=== PATIENT | female | born 1990 | race Two or more races ===

== ENCOUNTER 2023-05-09 21:17 | Inpatient (IN) | payer MEDICAID ==
[~2023-05-09] VITALS: Ht 154.9 cm; Wt 78.9 kg
[~2023-05-09 21:17] MED LIST: PREN-96 PO
[2023-05-09] MEDS ORDERED: PHISODERM TOP SOLN 240ML BTL TOP PRN (22:00)
[2023-05-09] MEDS ORDERED: PENICILLIN G POT 5MIL/D5 50ML 50 ML IV ONE (22:00)
[2023-05-09] MEDS ORDERED: DERMOPLAST 60ML BOTTLE TOP PRN (22:00)
[2023-05-09] MEDS ORDERED: PROMETHAZINE HCL 25 MG/ML 1ML IM PRN (22:00)
[2023-05-09] MEDS ORDERED: BUTORPHANOL TARTRATE 2 MG/1 ML VIAL IV PRN ×2 (22:00)
[2023-05-09] MEDS ORDERED: LIDOCAINE 2%HCL (LOCAL ANESTH.) INJ 20ML MDV IJ PRN (22:00)
[2023-05-09] MEDS ORDERED: WITCH HAZEL-GLYCERIN PAD TOP PRN (22:00)
[2023-05-09 22:28] LABS: Urine Bacteria NONE SEEN /hpf (None Seen); Urine Blood 3+ /uL (Negative); Urine Mucus FEW (None Seen); Urine Specific Gravity 1.007 (1.001-1.035); Urine WBC 13 /hpf (0 - 5)
[2023-05-09 23:17] LABS: Alcohol, Urine < 3.0 mg/dL (0-10); Amphetamine Screen, Urine NEGATIVE (NEGATIVE); Barbiturate Scree,Urine NEGATIVE (NEGATIVE); Benzodiazephine Screen, Urine NEGATIVE (NEGATIVE); Cannabinoid Screen, Urine NEGATIVE (NEGATIVE); Cocaine Screen, Urine NEGATIVE (NEGATIVE); Opiate Scree,Urine NEGATIVE (NEGATIVE); Phencyclidine Screen, Urine NEGATIVE (NEGATIVE)
[2023-05-09 23:28] LABS: Protein, Urine 24.9 mg/dL (0.0-11.9)
[2023-05-09] MEDS: LACTATED RINGER'S 1,000 ML IV SCH (23:49)
[2023-05-09 23:55] LABS: Basophils # (auto) 0 10 ^3/uL (0-0.2); Basophils % (auto) 0.3 % (0.0-2.0); Eosinophils # (auto) 0.1 10 ^3/uL (0-0.8); Eosinophils % (auto) 0.6 % (0.0-7.0); Hematocrit 39.9 % (36.0-46.0); Hemoglobin 13.3 g/dL (12.2-16.2); Lymphocytes # (auto) 1.3 10 ^3/uL (0.4-5.4); Lymphocytes % (auto) 13.6 % (10.0-50.0); Mean Corpuscular Hemoglobin 29.4 pg (28.0-32.0); Mean Corpuscular Hgb Conc. 33.4 g/dL (32.0-36.0); Monocytes # (auto) 0.5 10 ^3/uL (0-1.3); Monocytes % (auto) 5.4 % (0.0-12.0); Neutrophils # (auto) 7.4 10 ^3/uL (1.6-8.6); Neutrophils % (auto) 80.1 % (37.0-80.0); Nucleated Red Blood Cells % 0.1 %; Red Blood Cells 4.54 10^6/uL (4.0-5.20); Red Cell Distribution Width 14.1 % (11.8-14.3); White Blood Cell 9.3 10^3/uL (4.4-10.8)
[2023-05-10] VITALS (12 sets, daily range): BP systolic 113–139; BP diastolic 68–82; PULSE 56–78; RESP 15–18; TEMP 97.8–98.6; O2SAT 96–100
[2023-05-10 00:01] LABS: Albumin 2.7 g/dL (3.4-5.0); Calcium 8.7 mg/dL (8.5-10.1); Potassium 3.6 mmol/L (3.5-5.1)
[2023-05-10 00:03] LABS: INR 0.85 (0.9-1.15); Partial Thromboplastin Time 26.5 SEC (24.5-34.5)
[2023-05-10 00:05] LABS: BUN/Creatinine Ratio 10.9 (10.0-20.0); Bilirubin, Total 0.3 mg/dL (0.2-1.0); Total Protein 6.9 g/dL (6.4-8.2); Uric Acid 6.1 mg/dL (2.6-6.0)
[2023-05-10] MEDS: miSOPROStol 50 MCG per PRE-CUT 1/2 TAB PO PRN ×2 (00:34→04:42)
[2023-05-10] MEDS ORDERED: PENICILLIN G POTASSIUM 2,500,000 UNITS in D5W 5% 50 ML IV SCH ×2 (02:00→10:00)
[2023-05-10] MEDS ORDERED: PENICILLIN G POT 5MILLION UNIT VIAL ONE (03:19)
[2023-05-10] MEDS ORDERED: STERILE WATER 10 ML ONE (03:21)
[2023-05-10] MEDS: LACTATED RINGER'S 1,000 ML IV SCH ×4 (03:45→19:20)
[2023-05-10] MEDS ORDERED: LACT. RINGERS/OXYTOCIN 20UNITS 500 ML IV ONE ×2 (06:30→07:00)
[2023-05-10] MEDS ORDERED: TERBUTALINE SULFATE 1 MG/ML 1ML VIAL SC PRN (08:45)
[2023-05-10] MEDS ORDERED: LACT. RINGERS/OXYTOCIN 20UNITS 1,000 ML IV SCH (08:45)
[2023-05-10] MEDS ORDERED: ceFAZolin 2 GM/D5W100ml 100 ML IV ONE (12:00)
[2023-05-10] MEDS ORDERED: MORPHINE SULF PF 5 MG/10 ML VIAL ONE (13:53)
[2023-05-10] MEDS ORDERED: fentaNYL CITRATE 100 MCG/2 ML VL ONE (13:53)
[2023-05-10] MEDS ORDERED: HYDR-4902 PO ×2 (14:07)
[2023-05-10] MEDS ORDERED: DOCU-94 PO ×2 (14:07)
[2023-05-10] MEDS ORDERED: SODIUM CHLORIDE LOCK 10 ML ONE ×2 (14:12→14:22)
[2023-05-10] MEDS ORDERED: ePHEDrine SULFATE 50 MG/ML AMP ONE (14:12)
[2023-05-10] MEDS ORDERED: PHENYLEPHRINE HCL 10 MG/ML VL ONE (14:22)
[2023-05-10] MEDS ORDERED: GUM (CHEWING) 1 GUM CHEW CHEW ONE (14:45)
[2023-05-10] MEDS ORDERED: ONDANSETRON HCL 4 MG/2 ML VIAL IV PRN ×2 (14:45→15:15)
[2023-05-10] MEDS ORDERED: LACT. RINGERS/OXYTOCIN 20UNITS 1,000 ML IV ONE (14:45)
[2023-05-10] MEDS ORDERED: ceFAZolin 1GM/50ML 50 ML IV SCH (14:45)
[2023-05-10] MEDS ORDERED: diphenhdrAMINE HCL 50 MG/1 ML VL IV PRN (15:15)
[2023-05-10] MEDS ORDERED: NALOXONE HCL 0.4 MG/ML VIAL IV PRN (15:15)
[2023-05-10] MEDS ORDERED: HYDROmorphone HCL 2 MG/ML VL/or syr IV PRN (15:15)
[2023-05-10] MEDS ORDERED: NALBUPHINE HCL 10 MG/1ml INJECTION IV ONE (15:15)
[2023-05-10] MEDS: ACETAMINOPHEN IV 1000 MG/100ML (10MG/ML) IV PRN (19:20)
[2023-05-10] MEDS: ceFAZolin 1GM/50ML 50 ML IV SCH (21:19)
[2023-05-10 21:23] LABS: Basophils # (auto) 0 10 ^3/uL (0-0.2); Basophils % (auto) 0.2 % (0.0-2.0); Eosinophils # (auto) 0 10 ^3/uL (0-0.8); Hematocrit 37.5 % (36.0-46.0); Hemoglobin 12.7 g/dL (12.2-16.2); Lymphocytes # (auto) 0.6 10 ^3/uL (0.4-5.4); Lymphocytes % (auto) 3.3 % (10.0-50.0); Mean Corpuscular Hemoglobin 29.7 pg (28.0-32.0); Mean Corpuscular Hgb Conc. 33.9 g/dL (32.0-36.0); Mean Corpuscular Volume 87.6 fL (80.0-100.0); Monocytes # (auto) 0.7 10 ^3/uL (0-1.3); Monocytes % (auto) 3.6 % (0.0-12.0); Neutrophils # (auto) 17.9 10 ^3/uL (1.6-8.6); Neutrophils % (auto) 92.9 % (37.0-80.0); Red Blood Cells 4.28 10^6/uL (4.0-5.20); White Blood Cell 19.2 10^3/uL (4.4-10.8)
[2023-05-11] VITALS (12 sets, daily range): BP systolic 96–127; BP diastolic 45–74; PULSE 60–82; RESP 14–18; TEMP 97.9–99.1; O2SAT 95–100
[2023-05-11] MEDS: ACETAMINOPHEN IV 1000 MG/100ML (10MG/ML) IV PRN ×2 (02:56→11:27)
[2023-05-11] MEDS: ceFAZolin 1GM/50ML 50 ML IV SCH ×2 (04:59→12:59)
[2023-05-11 06:07] LABS: RPR Non Reactive (Non Reactive)
[2023-05-11 06:34] LABS: Basophils # (auto) 0 10 ^3/uL (0-0.2); Basophils % (auto) 0.1 % (0.0-2.0); Eosinophils # (auto) 0 10 ^3/uL (0-0.8); Eosinophils % (auto) 0.1 % (0.0-7.0); Hematocrit 33.6 % (36.0-46.0); Hemoglobin 11.3 g/dL (12.2-16.2); Lymphocytes # (auto) 1.1 10 ^3/uL (0.4-5.4); Mean Corpuscular Hemoglobin 29.4 pg (28.0-32.0); Mean Corpuscular Hgb Conc. 33.5 g/dL (32.0-36.0); Mean Corpuscular Volume 87.7 fL (80.0-100.0); Monocytes # (auto) 0.8 10 ^3/uL (0-1.3); Monocytes % (auto) 5.7 % (0.0-12.0); Neutrophils # (auto) 12.3 10 ^3/uL (1.6-8.6); Neutrophils % (auto) 86.1 % (37.0-80.0); Red Blood Cells 3.83 10^6/uL (4.0-5.20); White Blood Cell 14.3 10^3/uL (4.4-10.8)
[2023-05-11] MEDS ORDERED: KETOROLAC TROMETH 30 MG/ML 1ML VIAL IV PRN (07:45)
[2023-05-11] MEDS ORDERED: CARB1TAB65 PO ×2 (07:52)
[2023-05-11] MEDS ORDERED: PREN-96 PO ×2 (07:52)
[2023-05-11] MEDS ORDERED: IBUP-1456 PO ×2 (07:52)
[2023-05-11] MEDS: DOCUSATE SOD 100 MG CAP PO SCH ×2 (10:19→22:13)
[2023-05-11] MEDS: SIMETHICONE 80 MG CHEWABLE TABLET PO SCH ×3 (10:19→22:14)
[2023-05-11] MEDS ORDERED: SIMETHICONE 80 MG CHEWABLE TABLET PO SCH (12:00)
[2023-05-11] MEDS: HYDROcodone-ACET 5/325MG TAB PO PRN (22:16)
[2023-05-11] MEDS ORDERED: HYDROcodone-ACET 5/325MG TAB PO PRN (23:00)
[2023-05-12] MEDS: HYDROcodone-ACET 5/325MG TAB PO PRN (02:48)
[2023-05-12] MEDS ORDERED: IBUPROFEN 600 MG TAB PO PRN (03:00)
[2023-05-12 03:23] VITALS: BP 101/65; PULSE 69; RESP 18; TEMP 98.2; O2SAT 97
[2023-05-12] MEDS: SIMETHICONE 80 MG CHEWABLE TABLET PO SCH ×2 (04:00→10:18)
[2023-05-12 07:00] VITALS: BP 118/72; PULSE 83; RESP 17; TEMP 98.4; O2SAT 97
[2023-05-12] MEDS ORDERED: IBUP-1456 PO (07:25)
[2023-05-12] MEDS ORDERED: CARB1TAB65 PO (07:25)
[2023-05-12] MEDS ORDERED: HYDR-4902 PO ×2 (07:25→07:48)
[2023-05-12] MEDS ORDERED: PREN-96 PO (07:25)
[2023-05-12] MEDS ORDERED: DOCU-94 PO (07:25)
[2023-05-12] MEDS: DOCUSATE SOD 100 MG CAP PO SCH (10:18)
[2023-05-12 11:00] VITALS: BP 120/79; PULSE 72; RESP 18; TEMP 98.5; O2SAT 100
[2023-05-12 14:59] VITALS: BP 121/72; PULSE 86; RESP 16; TEMP 98.7; O2SAT 97
[2023-05-12 16:57] VITALS: BP 121/72; PULSE 86; RESP 16; TEMP 98.7; O2SAT 97
== END 2023-05-12 16:57 | disposition home or self-care (01) | DRG 540 ==
LOC: LDRP 21:17 → OBSVTOIN 22:40 → LDRP 23:42
PROVIDERS: ADMIT Obstetrics & Gynecology; ATTEND Obstetrics & Gynecology
PROC: 10D00Z1 Extraction of Products of Conception, Low, Open Approach (ICD-10-PCS; principal; 2023-05-10 14:04)
DX: O69.81X0 Labor and delivery complicated by cord around neck, without compression, not applicable or unspecified (principal); R71.0 Precipitous drop in hematocrit; O76 Abnormality in fetal heart rate and rhythm complicating labor and delivery; Z3A.39 39 weeks gestation of pregnancy; Z37.0 Single live birth; O99.824 Streptococcus B carrier state complicating childbirth
CPT/HCPCS: 36415; 59025; 80053; 80307; 81001; 81002; 82570; 84112; 84156; 84550; 85025; 85610; 85730; 86592; 86850; 86900; 86901; 94760; 94762; 96360; 96361; 96365; 96366; 96374; G0378; J0131; J0690; J1885; J2540; J2590; J7060